=== PATIENT | female | born 1975 | race Caucasian/White ===

== ENCOUNTER 2024-09-15 11:13 | Emergency (ER) | payer OTHER ==
[~2024-09-15] VITALS: Ht 165.1 cm; Wt 127.0 kg
[~2024-09-15 11:13] MED LIST: BLOOD PRESSURE PILL; Motrin,Rufen800 MG PO; PHENERGAN W/ DE30 ML PO; PREDNICOT10 MG PO; PREDNISONE20 M1 PO; PROAIR HFA0.09 MG/AC INH; ROBITUSSIN DM 105 ML PO; SYNTHROID0.025 MG PO; ZITHROMAX250 MG PO
[2024-09-15] MEDS ORDERED: AMITRIPTYLINE25 MG PO (11:35)
[2024-09-15] MEDS ORDERED: CITALOPRAM40 MG PO (11:36)
[2024-09-15] MEDS ORDERED: LAMOTRIGINE100 MG PO (11:36)
[2024-09-15] MEDS ORDERED: BUPROPION HYDR150 M3 PO (11:36)
[2024-09-15] MEDS ORDERED: methylPREDNISolone sod succ 125 MG VIAL IV ONE (12:30)
[2024-09-15] MEDS ORDERED: Albuterol Sulf/Ipratropium 3 ML VIAL NEB ONE ×2 (12:30→13:50)
[2024-09-15 12:52] LABS: BASO % 0.4 % (0.0-1.0); EOS # 0.1 10*3/uL (0.0-0.4); EOS % 1.1 % (1.0-4.0); HEMATOCRIT 41.6 % (37.0-47.0); MEAN CELL VOLUME 91.8 fl (81.0-99.0); MEAN CORPUSCULAR HGB 29.6 pg (27.0-31.0); MEAN CORPUSCULAR HGB CONC 32.2 g/dl (33.0-37.0); MEAN PLATELET VOLUME 9.4 fl (9.6-12.3); MONO # 0.4 10*3/uL (0.1-1.0); NEUT # 4.4 10*3/uL (2.3-7.9); NEUT % 58.7 % (47.0-73.0); PLATELET COUNT AUTOMATED 205 10*3/uL (130-400); RED BLOOD COUNT 4.53 10*6/uL (4.10-5.10); RED CELL DISTRI WIDTH 13.4 % (0-14.5); WHITE BLOOD COUNT 7.5 10*3/uL (4.8-10.8)
[2024-09-15 13:14] LABS: BUN 12 mg/dl (9-23); CHLORIDE 104 mmol/L (98-107); POTASSIUM 4.2 mmol/L (3.4-5.1)
[2024-09-15] MEDS ORDERED: AVPAK AZITHROM250 M1 PO (15:40)
[2024-09-15] MEDS ORDERED: PREDNISONE20 M1 PO (15:40)
[2024-09-15] MEDS ORDERED: AZITHROMYCIN 250 MG TAB PO ONE (15:45)
== END 2024-09-15 19:13 | disposition home or self-care (01) ==
LOC: ED 11:13
PROVIDERS: Nurse Practitioner Family
DX: J40 Bronchitis, not specified as acute or chronic (principal); F32.A Depression, unspecified; F41.9 Anxiety disorder, unspecified; F17.210 Nicotine dependence, cigarettes, uncomplicated; Z88.1 Allergy status to other antibiotic agents

== ENCOUNTER → 2024-12-08 | Outpatient (CLI) | payer OTHER ==
[~2024-12-08] MED LIST changes: +AMITRIPTYLINE25 MG PO; +AVPAK AZITHROM250 M1 PO; +Albuterol Sulfate 2.5 MG/3 ML VIAL NEB ONE; +BUPROPION HYDR150 M3 PO; +CITALOPRAM40 MG PO; +LAMOTRIGINE100 MG PO
== END | disposition home or self-care (01) ==
LOC: CP 01:58
PROVIDERS: ATTEND Family Medicine
DX: R06.00 Dyspnea, unspecified (principal)

== ENCOUNTER → 2025-01-04 | Day surgery (SDC) | payer OTHER ==
[~2025-01-04] VITALS: Ht 165.1 cm; Wt 170.1 kg
[~2025-01-04] MED LIST changes: -Albuterol Sulfate 2.5 MG/3 ML VIAL NEB ONE; +LIPITOR20 MG PO; +Lidocaine Hydrochloride 5 ML VIAL IV ONE; +Midazolam Hydrochloride 2 MG/2 ML VIAL IV ONE; +PROPOFOL 200 MG/20 ML VIAL IV ONE; +SODIUM CHLORIDE 0.9% 1,000 ML IV ONE; +TRULICITY1.5 MG/0.5 SC; +ZESTRIL10 MG PO; +fentaNYL CITRATE 100 MCG/2 ML VIAL IV ONE
[2025-01-04 11:29] VITALS: BP 121/66
[2025-01-04 12:13] VITALS: BP 106/37
[2025-01-04 12:28] VITALS: BP 121/67; BP 1211/67
[2025-01-04 12:45] VITALS: BP 128/65
== END | disposition home or self-care (01) ==
LOC: SDC 12-31 10:15
PROVIDERS: ATTEND Surgery
DX: Z12.11 Encounter for screening for malignant neoplasm of colon (principal); D12.0 Benign neoplasm of cecum; D12.3 Benign neoplasm of transverse colon; K63.5 Polyp of colon; K64.8 Other hemorrhoids; I10 Essential (primary) hypertension; E03.9 Hypothyroidism, unspecified; F41.9 Anxiety disorder, unspecified; F32.A Depression, unspecified; Z90.49 Acquired absence of other specified parts of digestive tract; Z98.890 Other specified postprocedural states; Z90.710 Acquired absence of both cervix and uterus; Z79.899 Other long term (current) drug therapy; Z88.1 Allergy status to other antibiotic agents; Z88.8 Allergy status to other drugs, medicaments and biological substances; Z83.3 Family history of diabetes mellitus

== ENCOUNTER → 2025-09-10 | Outpatient (CLI) | payer OTHER ==
[~2025-09-10] MED LIST changes: -Lidocaine Hydrochloride 5 ML VIAL IV ONE; -Midazolam Hydrochloride 2 MG/2 ML VIAL IV ONE; -PROPOFOL 200 MG/20 ML VIAL IV ONE; -SODIUM CHLORIDE 0.9% 1,000 ML IV ONE; -fentaNYL CITRATE 100 MCG/2 ML VIAL IV ONE
== END | disposition home or self-care (01) ==
LOC: RAD 09-08 12:44
PROVIDERS: ATTEND Nurse Practitioner Family
DX: M17.0 Bilateral primary osteoarthritis of knee (principal); M25.461 Effusion, right knee; M25.462 Effusion, left knee; G89.4 Chronic pain syndrome; I10 Essential (primary) hypertension